=== PATIENT | female | born 1990 | race Caucasian/White ===

== ENCOUNTER 2017-02-14 01:00 | Emergency (ER) | payer OTHER ==
[~2017-02-14] VITALS: Ht 154.9 cm; Wt 89.4 kg
[2017-02-14] MEDS ORDERED: NAPR500T2 PO (02:44)
[2017-02-14] MEDS ORDERED: KETOROLAC 60 MG/2 ML VIAL (J1885) IM ONE (02:45)
[2017-02-14 03:13] VITALS: BP 128/72
== END 2017-02-14 03:14 | disposition home or self-care (01) ==
LOC: M ED 02:40
DX: M25.512 Pain in left shoulder (principal)
CPT/HCPCS: 96372; 99282; J1885

== ENCOUNTER 2017-04-08 18:24 | Emergency (ER) | payer OTHER ==
[~2017-04-08] VITALS: Ht 154.9 cm; Wt 89.4 kg
[~2017-04-08 18:24] MED LIST: NAPR500T2 PO
[2017-04-08] MEDS ORDERED: ALBUTEROL SULFATE 2.5 MG/0.5 ML INH NEB SOLN NEB ONE (18:45)
[2017-04-08] MEDS ORDERED: IPRATROPIUM 0.5MG/ALBUTEROL 2.5MG INH SOL UD 3ML (DUONEB)(J7620) NEB ONE (18:45)
[2017-04-08] MEDS ORDERED: ALBU17IN2 INH (19:19)
[2017-04-08 19:28] VITALS: BP 132/76
--- NOTE | 2017-04-08 19:47 | REP ---
CHEST, TWO VIEWS: There is no evidence of acute infiltrate. No pleural effusion is seen. The heart is normal in size. The mediastinal silhouette is unremarkable. The visualized osseous structures are intact. IMPRESSION: No acute pulmonary disease. Signed by Edmond Alberto MD 04/09/2017 01:38 P
== END 2017-04-08 19:36 | disposition home or self-care (01) ==
LOC: M ED 18:45
DX: J45.909 Unspecified asthma, uncomplicated (principal)

== ENCOUNTER → 2017-05-04 | Outpatient (REF) | payer OTHER ==
[~2017-05-04] MED LIST changes: +ALBU17IN2 INH; -NAPR500T2 PO; +NAPR500T3 PO
== END ==
LOC: M SFHCCLAY 16:36
PROVIDERS: ATTEND Nurse Practitioner Family
DX: N76.1 Subacute and chronic vaginitis (principal); Z12.4 Encounter for screening for malignant neoplasm of cervix
CPT/HCPCS: 87070; 87077; 87186; 87491; 87591; G0123

== ENCOUNTER → 2017-06-15 | Outpatient (CLI) | payer OTHER ==
--- NOTE | 2017-06-15 19:37 | REP ---
LEFT ANKLE: Four view of the left ankle are performed. There is lateral soft tissue swelling. I see no acute fracture or dislocation. Ankle mortise is anatomic. IMPRESSION: No fracture or dislocation. Signed by Edmond Alberto MD 06/15/2017 08:17 P
== END ==
LOC: M LRY 18:48
PROVIDERS: ATTEND Nurse Practitioner Family
DX: S99.912A Unspecified injury of left ankle, initial encounter (principal); X58.XXXA Exposure to other specified factors, initial encounter; Y92.9 Unspecified place or not applicable; Y93.9 Activity, unspecified; Y99.9 Unspecified external cause status
CPT/HCPCS: 73610; G0463